=== PATIENT | female | born 1975 | race Caucasian/White ===

== ENCOUNTER 2017-03-14 02:50 | Emergency (ER) | payer OTHER ==
[~2017-03-14] VITALS: Ht 162.6 cm; Wt 72.7 kg
[~2017-03-14 02:50] MED LIST: ABILIFY10 MG PO; ACIPHEX20 MG PO; ADVIL200 M2 PO; ALBUTEROL17 GM IH; AMBIEN10 M1 PO; CARBAMAZEPINE200 MG PO; DEPO-PROVER400 MG/ML IM; Habitrol,Nicoderm CQ TD; IMITREX100 MG PO; Keppra PO; LEVAQUIN; LORAZEPAM0.5 MG; REMERON15 M2 PO; SEROQUEL PO; TRAZODONE HCL150 MG; VALIUM5 MG PO; VIMPAT100 MG PO; ZOLOFT100 M1 PO; oxyCODONE PO
[2017-03-14 04:28] VITALS: BP 127/80
[2017-03-14] MEDS ORDERED: NAPROXEN500 MG PO (20:44)
[2017-03-14] MEDS ORDERED: ACETAMINOPHEN325 M1 PO (20:44)
[2017-03-14] MEDS ORDERED: GEODON80 MG PO (20:44)
[2017-03-15] MEDS ORDERED: ROXICODONE5 MG PO (00:34)
== END 2017-03-14 04:28 | disposition home or self-care (01) ==
LOC: EME → EDBD 02:50 → EDSEX 02:50 → EME 02:50
DX: R25.1 Tremor, unspecified (principal); T44.6X5A Adverse effect of alpha-adrenoreceptor antagonists, initial encounter; S09.90XA Unspecified injury of head, initial encounter; W01.198A Fall on same level from slipping, tripping and stumbling with subsequent striking against other object, initial encounter; F51.4 Sleep terrors [night terrors]; J45.909 Unspecified asthma, uncomplicated; R56.9 Unspecified convulsions; F17.200 Nicotine dependence, unspecified, uncomplicated; Z88.8 Allergy status to other drugs, medicaments and biological substances; Z87.442 Personal history of urinary calculi
CPT/HCPCS: 70450; 93005; 99281; 99284

== ENCOUNTER 2017-03-14 18:55 | Emergency (ER) | payer OTHER ==
[~2017-03-14] VITALS: Ht 162.6 cm; Wt 73.2 kg
[2017-03-14] MEDS ORDERED: GEODON80 MG PO (20:44)
[2017-03-14] MEDS ORDERED: NAPROXEN500 MG PO (20:44)
[2017-03-14] MEDS ORDERED: ACETAMINOPHEN325 M1 PO (20:44)
[2017-03-14 20:57] LABS: HEMATOCRIT 40.3 % (36.0-46.0); MCH 29.9 PG (29.0-34.0); MCHC 33.7 G/DL (30.0-36.0); MCV 88.6 FL (83-99); MEAN PLAT.VOLUME 8.6 uM^3 (9.5-12.4); PLATELET COUNT 424 K/uL (156-360); RBC DIS.WIDTH-CV 14.1 % (11.8-14.6); RBC DIS.WIDTH-SD 45.6 % (39-53); RED BLOOD COUNT 4.55 M/uL (3.80-5.20); WHITE BLOOD COUNT 11.8 K/uL (4.1-10.2)
[2017-03-14 21:02] LABS: CHLORIDE 106 mEq/L (99-109); POTASSIUM 3.9 mEq/L (3.7-5.4); SODIUM 139 mEq/L (136-147)
[2017-03-14 21:04] LABS: GLUCOSE 97 mg/dL (70-99)
[2017-03-14 21:06] LABS: ANION GAP 11 MEQ/L (2-14); TOTAL BILIRUBIN 0.4 mg/dL (0.0-1.0)
[2017-03-14 21:08] LABS: ALKALINE PHOSPHATASE 113 IU/L (3-129); GFR ESTIMATE (CALCULATED) > 59 mL/min/
[2017-03-14 21:09] LABS: UREA NITROGEN (BUN) 13 mg/dL (9-23)
[2017-03-14 21:13] LABS: ADD MIUA? YES; BILIRUBIN NEGATIVE; BLOOD LARGE; COLOR YELLOW ((YELLOW)); GLUCOSE (STRIP) NEGATIVE; KETONES NEGATIVE; LEUKOCYTES NEGATIVE; NITRITE NEGATIVE; PROTEIN (STRIP) NEGATIVE; SPECIFIC GRAVITY 1.019 (1.000-1.030); UROBILINOGEN 0.2 MG/DL (0.2-1.0)
[2017-03-14 21:17] LABS: BACTERIA NONE SEEN /HPF; EPITHELIAL CELLS RARE /HPF; MUCUS TRACE /LPF; RED BLOOD CELLS 0-5 /HPF (0-5); UCUL ADDED? NO; WHITE BLOOD CELLS 0-5 /HPF (0-5)
[2017-03-14 21:17] LABS: QUANTITATIVE HCG < 4.0 MIU/ML
[2017-03-15] MEDS ORDERED: ROXICODONE5 MG PO (00:34)
[2017-03-15 00:44] VITALS: BP 128/81
== END 2017-03-15 00:45 | disposition home or self-care (01) ==
LOC: EME 18:55
DX: N94.6 Dysmenorrhea, unspecified (principal); N83.202 Unspecified ovarian cyst, left side; N83.201 Unspecified ovarian cyst, right side; R56.9 Unspecified convulsions; J45.909 Unspecified asthma, uncomplicated; Z87.442 Personal history of urinary calculi; Z88.6 Allergy status to analgesic agent; F17.200 Nicotine dependence, unspecified, uncomplicated
CPT/HCPCS: 76856; 80053; 81003; 84702; 85027; 99281; 99284; J3010